=== PATIENT | female | born 1970 | race Asian ===

== ENCOUNTER 2019-06-13 14:20 | Emergency (ER) | payer SELFPAY ==
--- NOTE | 2019-06-13 17:44 | Emergency Department Report ---
ED Back Pain/Injury HPI - General Chief Complaint: Back Pain/Injury Stated Complaint: LFT SIDE PAIN Time Seen by Provider: 06/13/19 17:34 Source: patient Limitations: No Limitations - History of Present Illness Initial Comments: 48 y old with l sided back pain worse w movement. no fall or trauma. no dysuria. no n/v/d. has not had before. took tylenol at home with some relief MD Complaint: back pain - Related Data Previous Rx's Medication Instructions Recorded Last Taken Type Cyclobenzaprine [Flexeril] 10 mg PO TID PRN #30 tablet 06/13/19 Unknown Rx Naproxen [Naprosyn] 500 mg PO BID PRN #20 tablet 06/13/19 Unknown Rx Allergies Allergy/AdvReac Type Severity Reaction Status Date / Time No Known Allergies Allergy Verified 08/23/16 20:00 ED Review of Systems ROS: Stated complaint: LFT SIDE PAIN Other details as noted in HPI Comment: All other systems reviewed and negative ED Past Medical Hx - Past Medical History Medical history: no medical history Surgical history: no surgical history Psychiatric history: no pertinent history ED Back Pain Physical Exam - Exam General: Vital signs noted. No distress. Alert and acting appropriately. Back/Abdomen: Yes Straight Leg Raise Pain, No Abdominal Tenderness, No Perithoracic Tenderness, No Perilumbar Tenderness, No Sacroiliac Tenderness, No Flank Tenderness Neuro: Yes Motor Weakness, Yes Normal DTR's, Yes Normal Gait, No Normal Sensation ED Course Vital Signs 06/13/19 14:39 Temperature 97.7 F Pulse Rate 83 Respiratory 18 Rate Blood Pressure 127/80 O2 Sat by Pulse 100 Oximetry Ed Back Pain Tests - Tests Tests: Normal UA ED Medical Decision Making - Medical Decision Making Labs 06/13/19 17:44 Urine Color Straw Urine Turbidity Clear Urine pH 7.0 Ur Specific [place] 1.010 Urine Protein <15 mg/dl Urine Glucose (UA) Neg Urine Ketones Neg Urine Blood Neg Urine Nitrite Neg Urine Bilirubin Neg Urine Urobilinogen < 2.0 Ur Leukocyte Esterase Neg Urine WBC (Auto) < 1.0 Urine RBC (Auto) 1.0 U Epithel Cells (Auto) 2.0 Urine Mucus Few Urine HCG, Qual Negative Vital Signs 06/13/19 14:39 Temperature 97.7 F Pulse Rate 83 Respiratory 18 Rate Blood Pressure 127/80 O2 Sat by Pulse 100 Oximetry ua noted medicated for pain w some relief pain worse with movement no spine tenderness neuro intact ambulatory dc home with dc plan of care. - Differential Diagnosis ro uti Critical care attestation.: If time is entered above; I have spent that time in minutes in the direct care of this critically ill patient, excluding procedure time. ED Disposition Clinical Impression: Musculoskeletal back pain Disposition: DC-01 TO HOME OR SELFCARE Is pt being admited?: No Does the pt Need Aspirin: No Condition: Stable Instructions: Back Pain (ED) Additional Instructions: warm compresses meds as ordered follow up pcp referral below do not drive while taking meds Prescriptions: Cyclobenzaprine [Flexeril] 10 mg PO TID PRN #30 tablet PRN Reason: Muscle Spasm Naproxen [Naprosyn] 500 mg PO BID PRN #20 tablet PRN Reason: Pain Referrals: BERHANE HAWKINS MD [Staff Physician] - 3-5 Days Forms: Work/School Release Form(ED) Time of Disposition: 18:54
[2019-06-13] MEDS ORDERED: TYLENOL PO ONE (17:45)
[2019-06-13 18:21] LABS: Bilirubin,Urine NEG (Negative); Blood,Urine NEG (Negative); Color,Urine Straw (Yellow); HCG Qualitative,Urine Negative (Negative); Mucus,Urine FEW /HPF; Protein,Urine <15 mg/dL mg/dL (Negative); Urobilinogen,Urine < 2.0 mg/dL (<2.0); WBC,Urine < 1.0 /HPF (0.0-6.0)
[2019-06-13] MEDS ORDERED: FLEXERIL PO ONE (18:52)
[2019-06-13] MEDS ORDERED: NORCO 5/325 PO ONE (18:52)
[2019-06-13 19:26] VITALS: BP 133/82
== END 2019-06-13 19:27 | disposition home or self-care (01) ==
LOC: ED 14:20
DX: M79.10 Myalgia, unspecified site (principal)
CPT/HCPCS: 81001; 81025; 99283